=== PATIENT | female | born 1985 | race Caucasian/White ===

== ENCOUNTER 2024-12-26 12:27 | Emergency (ER) | payer OTHER ==
[~2024-12-26] VITALS: Ht 160 cm; Wt 74.0 kg
[2024-12-26] MEDS ORDERED: LEVO50TA5 PO (12:52)
[2024-12-26] MEDS ORDERED: PROP60TA14 PO (12:52)
[2024-12-26 15:30] VITALS: BP 114/56; TEMP 97; O2SAT 100
[2024-12-26] MEDS: DERMABOND TOPICAL SKIN ADHESIVE TOP ONE (15:40)
[2024-12-26] MEDS: BOOSTRIX VACCINE (TETANUS/DIPHTH/ACEL. PERTUSSIS) 0.5ML SYR IM ONE (15:44)
== END 2024-12-26 15:55 | disposition home or self-care (01) ==
LOC: M ED 12:27
DX: S61.012A Laceration without foreign body of left thumb without damage to nail, initial encounter (principal); W26.9XXA Contact with unspecified sharp object(s), initial encounter; Y92.009 Unspecified place in unspecified non-institutional (private) residence as the place of occurrence of the external cause; Y93.G1 Activity, food preparation and clean up; Y99.9 Unspecified external cause status; E03.9 Hypothyroidism, unspecified; Z91.018 Allergy to other foods